=== PATIENT | female | born 1980 | race African-American/Black ===

== ENCOUNTER 2023-11-24 20:42 | Emergency (ER) | payer SELFPAY ==
[~2023-11-24] VITALS: Ht 165.1 cm; Wt 83.5 kg
[2023-11-24 20:47] VITALS: O2SAT 100
[2023-11-24 21:16] LABS: BASOPHILS % 0.9 % (0.0-2.0); HEMATOCRIT. 37.8 % (36.0-48.0); HEMOGLOBIN. 12.2 g/dL (12.0-16.0); LYMPHOCYTES % 47.8 % (20.0-50.0); MEAN CORPUSCULAR HEMOGLOBIN 27.4 pg (28.0-32.0); MEAN CORPUSCULAR HGB CONC 32.3 g/dL (31.0-37.0); MEAN PLATELET VOLUME 7.6 fl (7.4-10.4); MONOCYTES % 7.4 % (2.0-8.0); NEUTROPHILS % 40.9 % (40.0-76.0); PLATELET 260 x1000/uL (130-400); RED BLOOD CELL COUNT 4.45 mill/uL (4.2-5.4); RED CELL DISTRIBUTION WIDTH 13.8 % (11.6-14.6); WHITE BLOOD COUNT 4.8 x1000/uL (4.5-11.0)
[2023-11-24 21:18] LABS: CHLORIDE 105 mEq/L (98-107); POTASSIUM 3.8 mEq/L (3.5-5.1); SODIUM 136 mEq/L (136-145)
[2023-11-24 21:19] LABS: CARBON DIOXIDE 27 mEq/L (21-32)
[2023-11-24 21:20] LABS: CALCIUM 9.4 mg/dL (8.7-10.4)
[2023-11-24 21:24] LABS: CREATININE 0.8 mg/dL (0.6-1.0); GLUCOSE 99 mg/dL (70-105); UREA NITROGEN BLOOD 7 mg/dL (9-23)
[2023-11-24 21:26] LABS: ETHANOL BLOOD < 10 mg/dL (<10); HCG SCREEN NEGATIVE
[2023-11-24 21:30] VITALS: BP 133/86; PULSE 68; RESP 20; TEMP 36.50292; O2SAT 99
[2023-11-24] MEDS: METOCLOPRAMIDE HCL 10MG/2ML VIAL IV ONE (21:33)
[2023-11-24] MEDS: SODIUM CHLORIDE 0.9% 1,000 ML IV ONE (21:34)
[2023-11-24] MEDS: ACETAMINOPHEN 325MG TABLET PO ONE (21:34)
== END 2023-11-24 22:01 | disposition left against medical advice (07) ==
LOC: ER 20:42 → CANBEDREQ 22:02
DX: H53.8 Other visual disturbances (principal); R20.2 Paresthesia of skin; E78.00 Pure hypercholesterolemia, unspecified; Z90.710 Acquired absence of both cervix and uterus; Z90.49 Acquired absence of other specified parts of digestive tract
CPT/HCPCS: 80048; 80320; 84703; 85025; 85610; 36415; 71045; 93005; 96361; 96374; 99291; J2765; J7030; Z7610 ×3; G0480